=== PATIENT | female | born 1990 | race Caucasian/White ===

== ENCOUNTER 2017-03-08 00:08 | Emergency (ER) | payer MEDICAID, OTHER ==
[2017-03-08 06:40] VITALS: BMI 23.8
== END 2017-03-08 01:08 | disposition left against medical advice (07) ==
LOC: ED 00:08
DX: Z02.89 Encounter for other administrative examinations (principal)

== ENCOUNTER 2017-03-08 06:29 | Emergency (ER) | payer MEDICAID, OTHER ==
[2017-03-08 06:40] VITALS: TEMP 98.5; BMI 23.8
--- NOTE | 2017-03-08 07:38 | ED PDOC ---
Arrival/HPI - General Chief Complaint: Medical Clearance Time Seen by Provider: 03/08/17 07:13 - History of Present Illness Narrative History of Present Illness (Text): 03/08/17 07:37 26yo female with vaginal bleeding. Pt states she had a positive test on Tuesday. Denies n/v, denies abdominal pain. pt states she also had an episode of palpitations and chest discomfort overnight, which resolved. No sob or smith. Denies other complaints. Past Medical History - Provider Review Nursing Documentation Reviewed: Yes - Psychiatric Hx Substance Use: No Family/Social History Family/Social History: Unknown Family HX Smoking Status: Former Smoker Hx Alcohol Use: No Hx Substance Use: No Allergies/Home Meds Allergies/Adverse Reactions: Allergies No Known Allergies Allergy (Verified 07/26/15 12:29) Home Medications: Home Meds Medication Instructions Recorded Confirmed No Known Home Med 07/26/15 03/08/17 Physical Exam - Physical Exam Narrative Physical Exam (Text): 03/08/17 07:38 - Review of Systems Constitutional: Normal. absent: Fatigue, Weight Change, Fevers Eyes: Normal ENT: denies sore throat, denies tristhmus Respiratory: Normal. absent: SOB, Cough, Sputum Cardiovascular: Chest Pain, Palpitations absent: Syncope Gastrointestinal: Normal. absent: Abdominal Pain, Diarrhea, Nausea, Vomiting Genitourinary: vaginal bleeding. absent: Dysuria, Frequency, Hematuria Musculoskeletal: Normal. absent: Arthralgias, Back Pain, Neck Pain Skin: no rashes, no erythema Neurological: absent: Focal Weakness Endocrine: Normal Hemo/Lymphatic: Normal Psychiatric: No suicidal or homicidal ideations Physical exam Patient appears age appropriate in no distress, speaking full sentences without difficulty - Systems Exam Head: Present: Atraumatic, Normocephalic Pupils: Present: PERRL Extroacular Muscles: Present: EOMI Conjunctiva: Present: Normal Mouth: Present: Moist Mucous Membranes Neck: Present: Normal Range of Motion. No: MIDLINE TENDERNESS, Paraspinal Tenderness Respiratory/Chest: Present: Clear to Auscultation, Good Air Exchange. No: Respiratory Distress, Accessory Muscle Use, Tachypneic Cardiovascular: Present: Regular Rate and Rhythm, Normal S1, S2, Peripheal Pulses Present. No: Murmurs Abdomen: Present: Normal Bowel Sounds. No: Tenderness, Distention, Peritoneal Signs, Rebound, Guarding Back: Present: Normal Inspection. No: Midline Tenderness, Paraspinal Tenderness Upper Extremity: Present: Normal Inspection. No: Cyanosis, Edema Lower Extremity: Present: Normal Inspection. No: Edema Neurological: Present: GCS=15, Speech Normal, cranial nerves II through XII fully intact with no cerebellar abnormality, neurosensory fully intact. No focal neurological deficits. Skin: Present: Warm, Dry, Normal Color. No: Rashes Lymphatic: Present: OX3, NI, NC Psychiatric: Present: Alert, Oriented x 3, Normal Insight, Normal Concentration Vital Signs Reviewed: Yes Vital Signs Temp Pulse Resp BP Pulse Ox 03/08/17 08:06 73 17 114/81 99 03/08/17 06:41 98.5 F 77 18 113/85 100 03/08/17 06:30 98.5 F 77 16 113/85 100 Temperature: Afebrile Blood Pressure: Normal Pulse: Regular Respiratory Rate: Normal Appearance: Positive for: Well-Appearing Pain Distress: None Mental Status: Positive for: Alert and Oriented X 3 Medical Decision Making ED Course and Treatment: 26yo female with pos. test at home and vaginal bleeding overnight. States she had some cp and palpitations as well, but is currently asymptomatic and complaint free. US, ddimer, troponin ordered pt's HEART score low. cardiac enzymes and an EKG ordered I had a long discussion with patient that our initial evaluation has not shown evidence of a heart attack. Patient verbalized understanding that even if these tests are normal, symptoms may still be a warning sign of a future heart attack and it is very important for patient to arrange outpatient cardiology follow up 03/08/17 09:25 Transvaginal US Dictator : Matthew Reilly MD Report Date : 03/08/2017 09:20:09 IMPRESSION: Unremarkable pelvic ultrasound. No ultrasound evidence of ovarian torsion or suspicious cyst or solid adnexal mass. The uterus appears unremarkable. 03/08/17 09:56 pt in no distress pt made aware that she needs OB f/u in 1-2 days pt also made aware she needs repeat beta and US in 1-2 days states she feels comfortable being dc'd home denies cp/sob/smith Pt states she understands to return to the ER right away for new or worsening symptoms or for inability to f/u with PMD or specialist as instructed. Patient states that she fully agrees with and understands discharge instructions. States that she agrees with the plan and disposition. Verbalized and repeated discharge instructions and plan. I have given the patient opportunity to ask any additional questions. 03/08/17 10:06 EKG: Ordered, reviewed, and independently interpreted the EKG. Rate : 52 BPM Rhythm : Sinus Bradychardia Interpretation : No ST-segment elevations, normal intervals. Interpreted by me. - Lab Interpretations Lab Results: 03/08/17 07:30 03/08/17 07:30 Lab Results 03/08/17 07:30: Beta HCG, Quant 11.89 H 03/08/17 07:30: Blood Type O POSITIVE, Antibody Screen Negative, BBK History Checked No verified bt 03/08/17 07:30: Sodium 145, Potassium 3.8, Chloride 102, Carbon Dioxide 27, Anion Gap 20, BUN 11, Creatinine 0.7, Est GFR ( Amer) > 60, Est GFR (Non- Af Amer) > 60, Random Glucose 77, Calcium 9.8, Total Bilirubin 0.9, AST 26, ALT 20, Alkaline Phosphatase 73, Troponin I < 0.01, Total Protein 8.4 H, Albumin 5.1 H, Globulin 3.4, Albumin/Globulin Ratio 1.5 03/08/17 07:30: Urine Color Dark yellow, Urine Appearance Sl cloudy, Urine pH 6.0, Ur Specific [place] >= 1.030, Urine Protein Trace H, Urine Glucose (UA) Negative, Urine Ketones Negative, Urine Blood Large H, Urine Nitrate Negative, Urine Bilirubin Small H, Urine Urobilinogen 1.0 H, Ur Leukocyte Esterase Negative, Urine RBC Tntc, Urine WBC 0 - 2, Ur Epithelial Cells 0 - 2, Urine Bacteria Trace 03/08/17 07:30: PT 11.2, INR 1.04, APTT 29.0, D-Dimer, Quantitative 0.26 03/08/17 07:30: WBC 7.4 D, RBC 5.04, Hgb 15.9, Hct 44.3, MCV 87.9, MCH 31.5, MCHC 35.9, RDW 13.3, Plt Count 262, MPV 10.4, Gran % 57.9, Lymph % (Auto) 31.9, [place] % (Auto) 9.1 H, Eos % (Auto) 0.7 L, Baso % (Auto) 0.4, Gran # 4.31, Lymph # 2.4, [place] # 0.7 H, Eos # 0.1, Baso # 0.03 - RAD Interpretation Radiology Orders: 03/08/17 07:14 TRANSVAGINAL [US] Stat Disposition/Present on Arrival - Present on Arrival Any Indicators Present on Arrival: No History of DVT/PE: No History of Uncontrolled Diabetes: No Urinary Catheter: No History of Decub. Ulcer: No History Surgical Site Infection Following: None - Disposition Have Diagnosis and Disposition been Completed?: Yes Diagnosis: Vaginal bleeding in Disposition: HOME/ ROUTINE Disposition Time: 10:00 Patient Plan: Discharge Patient Problems: Current Active Problems Problem Status Onset Vaginal bleeding in Acute Condition: GOOD Discharge Instructions (ExitCare): Chest Pain (ED), Threatened Miscarriage (ED) , First Trimester Vaginal Bleed (ED) Additional Instructions: PLEASE RETURN TO THE EMERGENCY DEPARTMENT FOR NEW OR WORSENING SYMPTOMS. RETURN RIGHT AWAY IF YOU CANNOT FOLLOW UP WITH YOUR PRIMARY CARE DOCTOR, CLINIC, OR SPECIALIST IN 1-2 DAYS. Referrals: Angel Crawford MD [Staff Provider] - Follow up with primary Darius Gallardo MD [Staff Provider] - Follow up with primary Forms: [facility] (Slovenian), WORK NOTE
[2017-03-08 07:52] LABS: ADD MANUAL DIFF? NO
[2017-03-08 07:55] LABS: URINE BILIRUBIN SMALL (NEGATIVE); URINE BLOOD LARGE (NEGATIVE); URINE GLUCOSE (UA) NEGATIVE (NEGATIVE); URINE KETONE NEGATIVE (NEGATIVE); URINE LEUKOCYTE ESTERASE NEGATIVE Leu/uL (NEGATIVE); URINE PROTEIN TRACE mg/dL (<30 mg/dL)
[2017-03-08 07:59] LABS: BASO # 0.03 K/mm3 (0.0-2.0); BASO % 0.4 % (0.0-3.0); EOS # 0.1 (0.0-0.7); EOS % 0.7 % (1.5-5.0); GRAN # 4.31 (1.4-6.5); GRAN % 57.9 % (50.0-68.0); HEMATOCRIT 44.3 % (36.0-48.0); LYMPH # 2.4 (1.2-3.4); LYMPH % 31.9 % (22.0-35.0); MEAN CELL VOLUME 87.9 fL (80.0-105.0); MEAN CORPUSCULAR HEMOGLOBIN 31.5 pg (25.0-35.0); MEAN CORPUSCULAR HGB CONC 35.9 g/dl (31.0-37.0); MEAN PLATELET VOLUME 10.4 fl (7.0-11.0); MONO # 0.7 (0.1-0.6); MONO % 9.1 % (1.0-6.0); PLATELET COUNT 262 10^3/uL (120.0-450.0); RED CELL DISTRIBUTION WIDTH 13.3 % (11.5-14.5); WHITE BLOOD COUNT 7.4 10^3/ul (4.5-11.0)
[2017-03-08 08:07] VITALS: O2SAT 99
[2017-03-08 08:08] LABS: INR 1.04 (0.93-1.08)
[2017-03-08 08:10] LABS: ALB/GLOB RATIO 1.5 (1.1-1.8); ALKALINE PHOSPHATASE 73 U/L (38-133); ALT/SGPT 20 U/L (7-56); AST/SGOT 26 U/L (15-39); BILIRUBIN,TOTAL 0.9 mg/dL (0.2-1.3); BLOOD UREA NITROGEN 11 mg/dL (7-21); CALCIUM 9.8 mg/dL (8.4-10.5); CARBON DIOXIDE 27 mmol/L (21-33); CHLORIDE 102 mmol/L (95-110); D DIMER 0.26 mg/L FEU (0-0.50); GFR AFRICAN-AMERICAN > 60; GLUCOSE,RANDOM 77 mg/dL (70-110); POTASSIUM 3.8 mmol/L (3.6-5.0); SODIUM 145 mmol/L (132-148); TOTAL PROTEIN 8.4 g/dL (5.8-8.3)
[2017-03-08 08:11] LABS: URINE APPEARANCE SL CLOUDY (CLEAR); URINE COLOR DARK YELLOW (YELLOW)
[2017-03-08 08:15] LABS: URINE RBC TNTC /hpf (0-2); URINE WBC 0 - 2 /hpf (0-6)
[2017-03-08 08:16] LABS: URINE BACTERIA TRACE (NEG); URINE EPITHELIAL CELLS 0 - 2 /hpf (0-5)
[2017-03-08 09:20] LABS: TROPONIN I < 0.01 ng/mL
--- NOTE | 2017-03-08 09:22 | US ---
HISTORY: vaginal bleeding COMPARISON: None available. TECHNIQUE: Transvaginal ultrasound of the pelvis was performed in longitudinal and transverse planes. No prior pelvic ultrasound available comparison. FINDINGS: UTERUS: Measures 8.9 x 4.1 x 6.4 cm. Normal in size and appearance. The uterus is retroverted No fibroid or other mass lesion seen. ENDOMETRIUM: Measures 4.0 mm in diameter. Monolaminar appearance with no suspicious echo pattern appreciated. CERVIX: 1 cm nabothian cyst identified in the cervix which is otherwise unremarkable appearing. RIGHT OVARY: Measures 1.9 x 1.3 x 2.2 cm. No solid mass. Normal arterial blood flow. Normal-appearing follicles identified. LEFT OVARY: Measures 2.8 x 1.5 x 2.5 cm. No solid mass. Normal arterial blood flow. Normal-appearing follicles identified. FREE FLUID: Limited fluid is seen in the cul-de-sac which probably physiologic. OTHER FINDINGS: None. IMPRESSION: Unremarkable pelvic ultrasound. No ultrasound evidence of ovarian torsion or suspicious cyst or solid adnexal mass. The uterus appears unremarkable.
[2017-03-08 10:11] VITALS: BP 115/84; PULSE 75; RESP 18
--- NOTE | 2017-03-09 08:08 | CARD ---
APPROVED REPORT EKG Measurement Heart [id number] <Conclusion> Sinus bradycardia Otherwise normal ECG
== END 2017-03-08 10:13 | disposition home or self-care (01) ==
LOC: ED 06:29
DX: O46.91 Antepartum hemorrhage, unspecified, first trimester (principal); Z3A.00 Weeks of gestation of pregnancy not specified